=== PATIENT | male | born 1975 | race Caucasian/White ===

== ENCOUNTER 2017-04-27 00:16 | Emergency (ER) | payer SELFPAY ==
[2017-04-27] MEDS ORDERED: TRIAMCINOLONE ACETONIDE INJ 40 MG/1 ML VIAL INJ ONE (02:36)
[2017-04-27] MEDS ORDERED: BUPIVACAINE HCL 0.75% INJ/PF (7.5 MG/1 ML) 10 ML SDV INJ ONE (02:36)
--- NOTE | 2017-04-27 02:51 | RADIOLOGY REPORT (SQ) ---
EXAM DESCRIPTION: ELBOW RIGHT OVER 2 VIEWS COMPLETED DATE/TIME: 04/27/2017 2:35 am REASON FOR STUDY: pain s/p injury COMPARISON: None. NUMBER OF VIEWS: Four views. TECHNIQUE: AP, lateral, and both oblique radiographic images acquired of the right elbow. LIMITATIONS: None. FINDINGS: MINERALIZATION: Normal. BONES: No acute fracture or dislocation. No worrisome bone lesions. JOINT: No effusion. SOFT TISSUES: No soft tissue swelling. No foreign body. OTHER: No other significant finding. IMPRESSION: NEGATIVE STUDY OF THE RIGHT ELBOW. NO RADIOGRAPHIC EVIDENCE OF ACUTE INJURY. TECHNICAL DOCUMENTATION: JOB ID: [id number] [employer]- All Rights Reserved
--- NOTE | 2017-04-27 02:53 | ER Document Report ---
HPI - HPI Pain Level: 4 Notes: Patient is a 41-year-old male who presents the ED complaining of right elbow pain 2-3 months. Patient states that he was seen in [place] 3 weeks ago and had a negative x-ray. Patient has been taking Tylenol and naproxen with minimal relief. Patient states that he has pain with wrist extension and supination. Patient is not aware of any significant injury aside from falling on that elbow 3-5 months ago. Patient states that he is right-handed and he uses that arm often. The pain does not radiate and is described as soreness. Patient denies any drug allergies although ibuprofen is listed (GI upset). Patient denies any other significant past medical history. Denies any headache , fever, chest pain, palpitations, syncope, cough, shortness of breath, wheeze, dyspnea, abdominal pain, nausea/vomiting/diarrhea, numbness/tingling, muscle paralysis/weakness, or rash. - ROS Notes: REVIEW OF SYSTEMS: CONSTITUTIONAL : Denies fever, chills, or sweats. Denies recent illness. EENT: Denies eye, ear, throat, or mouth pain or symptoms. Denies nasal or sinus congestion or discharge. Denies throat, tongue, or mouth swelling or difficulty swallowing. CARDIOVASCULAR: Denies chest pain. Denies palpitations or racing or irregular heart beat. Denies ankle edema. RESPIRATORY: Denies cough, cold, or chest congestion. Denies shortness of breath, difficulty breathing, or wheezing. GASTROINTESTINAL: Denies abdominal pain or distention. Denies nausea, vomiting , or diarrhea. Denies blood in vomitus, stools, or per rectum. Denies black, tarry stools. Denies constipation. GENITOURINARY: Denies difficulty urinating, painful urination, burning, frequency, blood in urine, or discharge. MUSCULOSKELETAL: see hpi SKIN: Denies rash, lesions or sores. NEUROLOGICAL: Denies confusion or altered mental status. Denies passing out or loss of consciousness. Denies dizziness or lightheadedness. Denies headache. Denies weakness or paralysis or loss of use of either side. Denies problems with gait or speech. Denies sensory loss, numbness, or tingling. ALL OTHER SYSTEMS REVIEWED AND NEGATIVE. Dictation was performed using [employer] recognition software - [employer] Skin Color: Normal, Pass Christian Past Medical History - Social History Smoking Status: Current Every Day Smoker Family History: Reviewed & Not Pertinent Renal/ Medical History: Denies: Hx Peritoneal Dialysis Vertical Provider Document - CONSTITUTIONAL Agree With Documented VS: Yes Notes: PHYSICAL EXAMINATION: GENERAL: Well-appearing, well-nourished and in no acute distress. LUNGS: Breath sounds clear to auscultation bilaterally and equal. No wheezes rales or rhonchi. HEART: Regular rate and rhythm without murmurs, rubs, gallops. Musculoskeletal: Rt elbow: FROM to passive/active. Strength 5+/5. + tenderness to tendons of rt epicondyle. No swelling, abrasion, ecchymosis, or laceration noted. No bony tenderness. + tenderness with resisted wrist supination/ extension. Extremities: No cyanosis, clubbing, or edema b/l. Peripheral pulses 2+. Capillary refill less than 3 seconds. NEUROLOGICAL: Normal speech, normal gait. Normal sensory, motor exams PSYCH: Normal mood, normal affect. SKIN: Warm, Dry, normal turgor, no rashes or lesions noted. - INFECTION CONTROL TRAVEL OUTSIDE OF THE [place] IN LAST 30 DAYS: No - RESPIRATORY O2 Sat by Pulse Oximetry: 96 Course - Re-evaluation Re-evalutation: 04/27/17 03:08 Patient is an afebrile, well-hydrated, 41-year-old male who presents the ED with right lateral epicondylitis based on H&P today. Vitals stable. PE otherwise unremarkable. X-ray unremarkable for any acute fracture or dislocation. Reviewed treatment plans with patient. Patient would like to go ahead with a Kenalog/Sensorcaine injection. 40 mg of Kenalog along with 1.5 cc of Sensorcaine was injected into the lateral condyle successfully without any complications or blood loss. Patient noted improvement in his symptoms. I will send him home with a prescription for Voltaren gel. Conservative measures otherwise for symptoms. Consider consult with physical therapy/ortho. Recheck/ establish with a PCM this week. Return to the ED with any worsening/concerning symptoms otherwise as reviewed discharge. Patient is in agreement. - Vital Signs Vital signs: Temp Pulse Resp BP Pulse Ox 98.4 F 114 H 16 142/102 H 96 04/27/17 00:57 04/27/17 00:57 04/27/17 00:57 04/27/17 00:57 04/27/17 00:57 Procedures - Additional Procedures trigger point inj Time performed: 03:00 Additional Procedures: Other - epicondylitis steroid/lido injection. Notes: 04/27/17 03:05 Verbal and written consent obtained after procedure/risk/benefits reviewed Skin was cleansed utilizing iodine and alcohol swabs Kenalog 40 mg along with 1.5 cc Sensorcaine 0.75% was used to successfully inject the tendons of the lateral epicondyle of the right elbow Band-Aid placed thereafter for hemostasis Patient tolerated procedure well No complications No blood loss Discharge - Discharge Clinical Impression: Right lateral epicondylitis Condition: Stable Disposition: HOME, SELF-CARE Instructions: Joint Steroid Injection ([facility]), Tennis Elbow (Lateral Epicondylitis) ([facility]) Additional Instructions: Rest, Ice, Compression, Elevation Use medication as directed Tylenol as needed Light stretches daily Strength exercises as able Moist heat and massage may help F/u-establish with PCM this week for a recheck Consider consult(s) with Orthopedics/physical therapy for ongoing/worsening symptoms Return to the ED with any worsening symptoms and/or development of fever, headache, chest pain, palpitations, syncope, shortness of breath, trouble breathing, abdominal pain, muscle weakness/paralysis, saddle anesthesia, numbness/tingling, abscess, purulent discharge, red streaks, or other worsening symptoms that are concerning to you. Prescriptions: Diclofenac Sodium [Voltaren] 4 gm TP QID PRN #100 gel..gm. PRN Reason: Forms: Elevated Blood Pressure, Smoking Cessation Education Referrals: [facility] [Provider Group] - Follow up as needed
[2017-04-27 04:49] VITALS: BP 114/83
== END 2017-04-27 03:15 | disposition home or self-care (01) ==
LOC: ER 00:16
PROC: 3E0233Z Introduction of Anti-inflammatory into Muscle, Percutaneous Approach (ICD-10-PCS; principal; 2017-04-27)
PROC: 3E023BZ Introduction of Anesthetic Agent into Muscle, Percutaneous Approach (ICD-10-PCS; 2017-04-27)
DX: M77.11 Lateral epicondylitis, right elbow (principal); F17.200 Nicotine dependence, unspecified, uncomplicated
CPT/HCPCS: 99283

== ENCOUNTER 2017-06-21 01:28 | Emergency (ER) | payer SELFPAY ==
--- NOTE | 2017-06-21 02:23 | ER Document Report ---
HPI - HPI Pain Level: 4 Context: Patient is a 41-year-old male presents emergency department complaining of left hand pain. Patient states that he had a crush injury at work under piece of metal and since then has had intermittent numbness and tingling in his fingers. Otherwise normal motor function and sensation. No open wounds. - DERM Skin Color: Normal Past Medical History - Social History Smoking Status: Smoker,Current Status Unk Family History: Reviewed & Not Pertinent Patient has suicidal ideation: No Patient has homicidal ideation: No Renal/ Medical History: Denies: Hx Peritoneal Dialysis Vertical Provider Document - CONSTITUTIONAL Notes: PHYSICAL EXAM GENERAL: Alert, interacts well. EXTREMITIES: Equal manager ethics strength sensation normal. moves all 4 extremities spontaneously. No edema, radial and dorsalis pedis pulses 2/4 bilaterally. No cyanosis. NEUROLOGICAL: Alert and oriented x4. Normal speech.sensation normal in b/l UE's. PSYCH: Normal affect, normal mood. SKIN: Warm, dry, normal turgor. No rashes or lesions noted. - INFECTION CONTROL TRAVEL OUTSIDE OF THE [place] IN LAST 30 DAYS: No - RESPIRATORY O2 Sat by Pulse Oximetry: 98 Course - Re-evaluation Re-evalutation: 06/21/17 03:41 Patient is a 41-year-old male who is hemodynamically stable, no acute distress afebrile. No evidence of a septic joint, gout flare, dislocation, or fracture on exam and imaging. Vitals wnl. At this time, I do not see an indication for labs or further imaging. Will discharge with conservative measures, return precautions, and follow-up recommendations. - Vital Signs Vital signs: Temp Pulse Resp BP Pulse Ox 98.3 F 120 H 98 H 140/108 H 98 06/21/17 01:35 06/21/17 01:35 06/21/17 01:35 06/21/17 01:35 06/21/17 01:35 - Diagnostic Test Radiology reviewed: Image reviewed, Reports reviewed Discharge - Discharge Clinical Impression: Hand pain Condition: Good Disposition: HOME, SELF-CARE Instructions: Contusion ([facility]), Nerve Contusion ([facility]) Referrals: ANNALISE TEIXEIRA DO [ACTIVE STAFF] - 07/06/17
--- NOTE | 2017-06-21 03:18 | RADIOLOGY REPORT (SQ) ---
EXAM DESCRIPTION: HAND LEFT 3 VIEWS COMPLETED DATE/TIME: 06/21/2017 3:10 am REASON FOR STUDY: pain, crush injury 2 days ago COMPARISON: None. EXAM PARAMETERS: NUMBER OF VIEWS: Three views. TECHNIQUE: AP, lateral and oblique radiographic images acquired of the left hand. LIMITATIONS: None. FINDINGS: MINERALIZATION: Normal. BONES: No acute fracture or dislocation. No worrisome bone lesions. JOINTS: No effusions. SOFT TISSUES: No soft tissue swelling. No foreign body. OTHER: No other significant finding. IMPRESSION: NEGATIVE STUDY OF THE LEFT HAND. NO RADIOGRAPHIC EVIDENCE OF ACUTE INJURY. TECHNICAL DOCUMENTATION: JOB ID: [id number] [employer]- All Rights Reserved
[2017-06-21] MEDS ORDERED: NAPROXEN 250 MG TABLET PO ONE (03:42)
[2017-06-21 03:49] VITALS: BP 119/81
== END 2017-06-21 03:51 | disposition home or self-care (01) ==
LOC: ER 01:28
DX: M79.642 Pain in left hand (principal); X58.XXXA Exposure to other specified factors, initial encounter; F17.200 Nicotine dependence, unspecified, uncomplicated
CPT/HCPCS: 99283

== ENCOUNTER 2017-10-21 20:33 | Observation (INO) | payer SELFPAY ==
[2017-10-21] MEDS ORDERED: ASPIRIN 81 MG TABLET, CHEWABLE PO ONE (21:51)
--- NOTE | 2017-10-21 21:53 | ER Document Report ---
ED Medical Screen (RME) - General Chief Complaint: Chest Pain Stated Complaint: CHEST PAINS/RASH Time Seen by Provider: 10/21/17 21:45 Notes: Patient is a 41-year-old male presents emergency room with a chief complaint of rash but states that as he was driving a. Sudden onset of bilateral chest tightness without radiation into his jaw upper extremities or back that his slowly dwindled since his arrival. He denies any specific focal pain, shortness of breath, cough, dyspnea. Denies any recent URI symptoms. Denies any alleviating factors. Patient denies any previous history of chest pain. Denies any medical problems. Denies any recent travel. Also admits to rash covering his extremities for the past 3 weeks. TRAVEL OUTSIDE OF THE [place] IN LAST 30 DAYS: No - Related Data Allergies/Adverse Reactions: ibuprofen Adverse Reaction (Verified 04/27/17 01:03) Past Medical History Renal/ Medical History: Denies: Hx Peritoneal Dialysis Physical Exam - Vital signs Vitals: Temp Pulse Resp BP Pulse Ox 98.1 F 106 H 16 110/78 97 10/21/17 21:04 10/21/17 21:04 10/21/17 21:04 10/21/17 21:04 10/21/17 21:04 - Notes Notes: PHYSICAL EXAM GENERAL: Alert, interacts well. HEAD: Normocephalic, atraumatic. LUNGS: Clear to auscultation bilaterally, no wheezes, rales, or rhonchi. No respiratory distress. HEART: Regular rate and rhythm. No murmurs, gallops, or rubs. EXTREMITIES: Moves all 4 extremities spontaneously. No edema, radial and dorsalis pedis pulses 2/4 bilaterally. No cyanosis. NEUROLOGICAL: Alert and oriented x4. Normal speech. PSYCH: Normal affect, normal mood. SKIN: Warm, dry, normal turgor. Lesions noted all over her forearms that are exposed that show evidence of abrasions likely related to picking without any focal cellulitis, purulent drainage Course - Vital Signs Vital signs: Temp Pulse Resp BP Pulse Ox 98.1 F 106 H 16 110/78 97 10/21/17 21:04 10/21/17 21:04 10/21/17 21:04 10/21/17 21:04 10/21/17 21:04
[2017-10-21 22:11] LABS: ABSOLUTE EOSINOPHILS # (AUTO) 0.1 10^3/uL (0.0-0.6); ABSOLUTE LYMPHOCYTES (AUTO) 2.1 10^3/uL (0.5-4.7); ABSOLUTE NEUT (AUTO) 6.5 10^3/uL (1.7-8.2); BASOPHILS % (AUTO) 0.5 % (0-2); EOSINOPHILS % (AUTO) 1.5 % (0-6); HEMATOCRIT 44.3 % (37.9-51.0); HEMOGLOBIN 15.3 g/dL (13.5-17.0); MEAN CORPUSCULAR HEMOGLOBIN 31.2 pg (27.0-33.4); MEAN CORPUSCULAR HGB CONC 34.4 g/dL (32.0-36.0); MEAN CORPUSCULAR VOLUME 91 fl (80-97); MONOCYTES % (AUTO) 10.4 % (3-13); PLATELET COUNT 251 10^3/uL (150-450); RED BLOOD COUNT 4.89 10^6/uL (4.35-5.55); RED CELL DISTRIBUTION WIDTH 13.5 % (11.5-14.0); SEGMENTED NEUTROPHILS % (AUTO) 66.6 % (42-78); TOTAL CELLS COUNTED % (AUTO) 100 %; WHITE BLOOD COUNT 9.8 10^3/uL (4.0-10.5)
--- NOTE | 2017-10-21 22:17 | ER Document Report ---
ED General - General Chief Complaint: Chest Pain Stated Complaint: CHEST PAINS/RASH Time Seen by Provider: 10/21/17 21:45 Mode of Arrival: Ambulatory Information source: Patient Notes: 41-year-old male presents with 2 separate complaints, patient's initial complaint was multiple small abscesses throughout his body, patient was coming to be seen for this and then on route he began having sudden chest tightness pressure sensation lasting approximately 1 hour associated with shortness of breath difficulty breathing and diaphoresis. Patient denies any previous similar episodes patient denies any medical history except for consistent sinus tachycardia patient denies any cardiac workup TRAVEL OUTSIDE OF THE [place] IN LAST 30 DAYS: No - HPI Onset: Just prior to arrival Onset/Duration: Sudden Quality of pain: Pressure Severity: Mild Pain Level: 1 Associated symptoms: Chest pain, Shortness of breath, Sweating Exacerbated by: Denies Relieved by: Denies Similar symptoms previously: No Recently seen / treated by doctor: No Past Medical History - Social History Smoking Status: Never Smoker Cigarette use (# per day): No Chew tobacco use (# tins/day): Yes Smoking Education Provided: No Family History: CAD - Father had quadruple bypass Renal/ Medical History: Denies: Hx Peritoneal Dialysis Review of Systems - Review of Systems Notes: REVIEW OF SYSTEMS: CONSTITUTIONAL : Admits to diaphoresis EENT: Denies eye, ear, throat, or mouth pain or symptoms. Denies nasal or sinus congestion or discharge. Denies throat, tongue, or mouth swelling or difficulty swallowing. CARDIOVASCULAR admits to chest pain RESPIRATORY: Admits shortness of breath GASTROINTESTINAL: Denies abdominal pain or distention. Denies nausea, vomiting , or diarrhea. Denies blood in vomitus, stools, or per rectum. Denies black, tarry stools. Denies constipation. GENITOURINARY: Denies difficulty urinating, painful urination, burning, frequency, blood in urine, or discharge. MUSCULOSKELETAL: Denies back or neck pain or stiffness. Denies joint pain or swelling. SKIN: Admits to rash HEMATOLOGIC : Denies easy bruising or bleeding. LYMPHATIC: Denies swollen, enlarged glands. NEUROLOGICAL: Denies confusion or altered mental status. Denies passing out or loss of consciousness. Denies dizziness or lightheadedness. Denies headache. Denies weakness or paralysis or loss of use of either side. Denies problems with gait or speech. Denies sensory loss, numbness, or tingling. Denies seizures. PSYCHIATRIC: Denies anxiety or stress. Denies depression, suicidal ideation, or homicidal ideation. ALL OTHER SYSTEMS REVIEWED AND NEGATIVE. Dictation was performed using [employer] voice recognition software PHYSICAL EXAMINATION: GENERAL: Well-appearing, well-nourished and in no acute distress. HEAD: Atraumatic, normocephalic. EYES: Pupils equal round and reactive to light, extraocular movements intact, sclera anicteric, conjunctiva are normal. ENT: Nares patent, oropharynx clear without exudates. Moist mucous membranes. NECK: Normal range of motion, supple without lymphadenopathy LUNGS: Breath sounds clear to auscultation bilaterally and equal. No wheezes rales or rhonchi. HEART: Regular rate and rhythm without murmurs ABDOMEN: Soft, nontender, nondistended abdomen. No guarding, no rebound. No masses appreciated. Musculoskeletal: Normal range of motion, no pitting or edema. No cyanosis. NEUROLOGICAL: Cranial nerves grossly intact. Normal speech, normal gait. Normal sensory, motor exams PSYCH: Normal mood, normal affect. SKIN: Multiple small scabs all throughout the body consistent with abscesses Physical Exam - Vital signs Vitals: Temp Pulse Resp BP Pulse Ox 98.1 F 106 H 16 110/78 97 10/21/17 21:04 10/21/17 21:04 10/21/17 21:04 10/21/17 21:04 10/21/17 21:04 Course - Re-evaluation Re-evalutation: 10/21/17 23:49 Patient's workup is benign, he notes he has not not had any chest pain since the initial presentation he will be admitted to the hospitalist service for ACS rule out - Vital Signs Vital signs: Temp Pulse Resp BP Pulse Ox 97.9 F 106 H 25 H 118/82 97 10/21/17 23:08 10/21/17 21:04 10/21/17 23:01 10/21/17 23:01 10/21/17 23:01 - Laboratory Result Diagrams: 10/21/17 21:55 10/21/17 21:55 Laboratory results interpreted by me: 10/21/17 21:55 Glucose 117 H Creatine Kinase 43 L Discharge - Discharge Clinical Impression: Rash and nonspecific skin eruption Chest pain Qualifiers: Chest pain type: unspecified Qualified Code(s): R07.9 - Chest pain, unspecified Condition: Stable Disposition: ADMITTED OBSERVATION Admitting Provider: Hospitalist Unit Admitted: Telemetry
[2017-10-21 22:27] LABS: ALANINE AMINOTRANSFERASE 34 U/L (21-72); ALBUMIN 4.2 g/dL (3.5-5.0); ALKALINE PHOSPHATASE 51 U/L (38-126); ANION GAP 13 (5-19); ASPARTATE AMINO TRANSFERASE 19 U/L (17-59); BILIRUBIN,DIRECT 0.1 mg/dL (0.0-0.4); BILIRUBIN,TOTAL 0.3 mg/dL (0.2-1.3); BLOOD UREA NITROGEN 7 mg/dL (7-20); CALCIUM 9.5 mg/dL (8.4-10.2); CARBON DIOXIDE 23 mmol/L (22-30); CHLORIDE 105 mmol/L (98-107); CREATINE KINASE 43 U/L (55-170); GLUCOSE 117 mg/dL (75-110); POTASSIUM 3.9 mmol/L (3.6-5.0); SODIUM 140.5 mmol/L (137-145)
[2017-10-21 22:40] LABS: TROPONIN I < 0.012 ng/mL
--- NOTE | 2017-10-21 23:22 | RADIOLOGY REPORT (SQ) ---
EXAM DESCRIPTION: CHEST SINGLE VIEW CLINICAL HISTORY: 41 years, Male, chest pain COMPARISON: None. FINDINGS: Normal lung volume, clear parenchyma, normal cardiac silhouette, and intact bony thorax. IMPRESSION: No acute cardiopulmonary findings.
[2017-10-22] MEDS ORDERED: MAG HYDROX/AL HYDROX/SIMETH SUSP 30 ML UDCUP PO PRN (02:12)
[2017-10-22] MEDS ORDERED: DOXYCYCLINE HYCLATE 100 MG TABLET PO ONE (03:00)
[2017-10-22 04:30] LABS: CREATINE KINASE 42 U/L (55-170); TRIGLYCERIDES 303 mg/dL (<150)
--- NOTE | 2017-10-22 04:39 | PDOC H&P ---
History of Present Illness Admission Date/PCP: 10/22/17 00:23 Patient complains of: Chest pain History of Present Illness: PRICILLA MONDRAGON is a 41 year old male with past medical history of GERD and folliculitis. Presents following a 1 hour episode of severe retrosternal chest pain associated with shortness of breath nausea and diaphoresis prompting evaluation emergency room. It is dull, 5 out of 5 intensity and nonradiating he denies previous episode. He is unable to identify alleviating or exacerbating factors pain resolves spontaneously without intervention. In the emergency room his workup was unremarkable he is referred to the hospitalist for evaluation. He denies recent change in medications and otherwise feels well. Additionally patient complains of recent recurrent severe acid reflux awakening him from sleep. Also a chronic diffuse follicular rash without pustules. Past Medical History Medical History: None Skin Medical History: Reports: Other - Folliculitis Past Surgical History Past Surgical History: Reports: None Social History Information Source: Patient Lives with: Family Smoking Status: Never Smoker Frequency of Alcohol Use: None Hx Recreational Drug Use: No Drugs: None - Advance Directive Resuscitation Status: Full Code Family History Family History: CAD - Father had quadruple bypass Parental Family History Reviewed: Yes Children Family History Reviewed: Yes Sibling(s) Family History Reviewed.: Yes Medication/Allergy Home Medications: No Home Medications 10/22/17 Allergies/Adverse Reactions: No Known Allergies Allergy (Unverified 10/22/17 00:07) Review of Systems Constitutional: ABSENT: chills, fever(s), headache(s), weight gain, weight loss Eyes: ABSENT: visual disturbances Ears: ABSENT: hearing changes Cardiovascular: ABSENT: chest pain, dyspnea on exertion, edema, orthropnea, palpitations Respiratory: ABSENT: cough, hemoptysis Gastrointestinal: PRESENT: heartburn - Severe uncontrolled GERD. ABSENT: abdominal pain, constipation, diarrhea, hematemesis, hematochezia, nausea, vomiting Genitourinary: ABSENT: dysuria, hematuria Musculoskeletal: ABSENT: joint swelling Integumentary: ABSENT: rash, wounds Neurological: ABSENT: abnormal gait, abnormal speech, confusion, dizziness, focal weakness, syncope Psychiatric: ABSENT: anxiety, depression, homidical ideation, suicidal ideation Endocrine: ABSENT: cold intolerance, heat intolerance, polydipsia, polyuria Hematologic/Lymphatic: ABSENT: easy bleeding, easy bruising Physical Exam Vital Signs: Temp Pulse Resp BP Pulse Ox 97.9 F 106 H 9 L 109/67 95 10/21/17 23:08 10/21/17 21:04 10/22/17 03:01 10/22/17 03:01 10/22/17 03:01 General appearance: PRESENT: no acute distress, well-developed, well-nourished Head exam: PRESENT: atraumatic, normocephalic Eye exam: PRESENT: conjunctiva pink, EOMI, PERRLA. ABSENT: scleral icterus Ear exam: PRESENT: normal external ear exam Mouth exam: PRESENT: moist, tongue midline Neck exam: ABSENT: carotid bruit, JVD, lymphadenopathy, thyromegaly Respiratory exam: PRESENT: clear to auscultation ryan. ABSENT: rales, rhonchi, wheezes Cardiovascular exam: PRESENT: RRR. ABSENT: diastolic murmur, rubs, systolic murmur Pulses: PRESENT: normal dorsalis pedis pul Vascular exam: PRESENT: normal capillary refill GI/Abdominal exam: PRESENT: normal bowel sounds, soft. ABSENT: distended, guarding, mass, organolmegaly, rebound, tenderness Rectal exam: PRESENT: deferred Extremities exam: PRESENT: full ROM. ABSENT: calf tenderness, clubbing, pedal edema Neurological exam: PRESENT: alert, awake, oriented to person, oriented to place , oriented to time, oriented to situation, CN II-XII grossly intact. ABSENT: motor sensory deficit Psychiatric exam: PRESENT: appropriate affect, normal mood. ABSENT: homicidal ideation, suicidal ideation Skin exam: PRESENT: dry, intact, warm, other - Diffuse for folliculitis of the extremities and chest. ABSENT: cyanosis, rash Results Impressions: Chest X-Ray 10/21/17 21:51 IMPRESSION: No acute cardiopulmonary findings. Assessment & Plan - Diagnosis (1) Chest pain Qualifiers: Chest pain type: unspecified Qualified Code(s): R07.9 - Chest pain, unspecified Is this a current diagnosis for this admission?: Yes Plan: Atypical chest pain though the patient's pain is atypical there are multiple risk factors for coronary artery disease and subsequently will observe and evaluation of acute coronary syndrome versus coronary artery disease with anginal equivalents. Cardiac monitoring blood pressure Q6 hours ,TSH, lipid profile, serial cardiac enzymes and cardiac stress test (2) GERD (gastroesophageal reflux disease) Is this a current diagnosis for this admission?: Yes Plan: #1 likely secondary to esophageal spasm. Education for avoidance of caffeine and lying down after eating. (3) Rash and nonspecific skin eruption Is this a current diagnosis for this admission?: Yes Plan: Patient is a regular Kody will trial doxycycline 10 days. - Time Time Spent: 50 to 70 Minutes - Inpatient Certification Medical Necessity: Need Close Monitoring Due to Risk of Patient Decompensation
[2017-10-22 04:41] LABS: DIRECT LDL 100 mg/dL (<100)
[2017-10-22 04:42] LABS: CREATINE KINASE MB 0.51 ng/mL (<4.55)
[2017-10-22 05:07] LABS: TROPONIN I < 0.012 ng/mL; VLDL CHOLESTEROL 60.6 mg/dL (10-31)
[2017-10-22] MEDS: LANSOPRAZOLE 30 MG TAB.RAP.DR PO SCH ×2 (05:25→18:09)
--- NOTE | 2017-10-22 08:50 | EKG REPORT ---
SEVERITY:- OTHERWISE NORMAL ECG - SINUS TACHYCARDIA : Confirmed by: Isabelle Brice 22-Oct-2017 08:49:41
[2017-10-22 11:15] LABS: CREATINE KINASE MB 0.58 ng/mL (<4.55)
--- NOTE | 2017-10-22 11:18 | DRAGON STRESS TEST REPORT ---
EXERCISE TREADMILL TEST. DATE OF PROCEDURE: October 22, 2017 INDICATION: Patient with unspecified chest pain. Coronary risk factors: Family history of CAD Resting EKG: Sinus rhythm, no baseline ST segment changes. Stress EKG: No significant changes noted with with exercise treadmill. Reason for termination: Dyspnea and fatigue. PROCEDURE REPORT: Baseline heart rate: 95 beats per minute with blood pressure of 133/81. Patient had no significant complaints at baseline. Patient was exercised on a standard Carlos protocol. Patient exercised for total of 6 minutes and 11 seconds. Exercise was stopped because of fatigue and shortness of breath, patient also had chest pain at peak exercise, which resolved within a minute of recovery. If automatic blood pressure recorded and if felt not accurate manual blood pressure then were recorded at appropriate intervals. Peak heart rate: 153 bpm, 85 of predicted maximum. Peak blood pressure: 159/77 mmHg. Double product: 23.5 kcal Exercise EKG: Showed some baseline artifact during exercise but no significant ST segment changes noted. CONCLUSIONS: Normal EKG and satisfactory hemodynamic response to exercise. However patient had positive chest pain at peak exercise and in early recovery, CAD not completely ruled out. Below average exercise tolerance. Negative EKG changes with exercise. RECOMMENDATIONS: Since patient developed chest pain at peak exercise, this could be indicative of underlying CAD and further testing is indicated which may include a nuclear stress test, cardiac CTA, a stress echo etc. posterior wall ischemia can be missed by plain stress EKG. Aggressive risk factor modification, medical therapy. Consider cardiology consultation if clinically indicated. Isabelle Brice M.D., [employer] production specialist, Board certified in cardiovascular diseases, Nuclear cardiology, Echocardiography Cardiac CT and cardiac MRI Ph. [phone] Ph. [phone] [facility]
[2017-10-22 11:19] LABS: TROPONIN I < 0.012 ng/mL
[2017-10-22] MEDS ORDERED: INFLUENZA ADLT QUAD (36MOS+) 2017-18 VAC 0.5 ML SYR IM PRN (16:35)
[2017-10-22 17:39] LABS: CREATINE KINASE MB 0.56 ng/mL (<4.55)
[2017-10-22 17:41] LABS: TROPONIN I < 0.012 ng/mL
[2017-10-22] MEDS: DOXYCYCLINE HYCLATE 100 MG TABLET PO SCH (18:08)
[2017-10-22 18:10] LABS: CHOLESTEROL 157.71 mg/dL (0-200); TRIGLYCERIDES 256 mg/dL (<150); VLDL CHOLESTEROL 51.2 mg/dL (10-31)
[2017-10-22 18:21] LABS: DIRECT LDL 98 mg/dL (<100)
--- NOTE | 2017-10-22 20:18 | PDOC CONSULTATION ---
Consultation Consult Date: 10/22/17 Attending physician:: FRANCOIS SMITH Consult reason:: Chest pain History of Present Illness Admission Date/PCP: 10/22/17 00:23 Patient complains of: Chest pain History of Present Illness: PRICILLA MONDRAGON is a 41 year old male with past medical history of GERD and folliculitis. Presents following a 1 hour episode of severe retrosternal chest pain associated with shortness of breath nausea and diaphoresis prompting evaluation emergency room. It is dull, 5 out of 5 intensity and nonradiating he denies previous episode. He is unable to identify alleviating or exacerbating factors pain resolves spontaneously without intervention. In the emergency room his workup was unremarkable he is referred to the hospitalist for evaluation. He denies recent change in medications and otherwise feels well. Additionally patient complains of recent recurrent severe acid reflux awakening him from sleep. Also a chronic diffuse follicular rash without pustules. This history was reviewed and confirmed. Patient had a stress test today during which he was noted to have chest pain but no significant EKG changes. Past Medical History Skin Medical History: Reports: Other - Folliculitis Psychiatric Medical History: Denies: Depression Past Surgical History Past Surgical History: Reports: None Social History Information Source: Patient Lives with: Family Smoking Status: Never Smoker Frequency of Alcohol Use: None Hx Recreational Drug Use: No Drugs: None Hx Prescription Drug Abuse: No - Advance Directive Resuscitation Status: Full Code Family History Family History: CAD - Father had quadruple bypass Parental Family History Reviewed: Yes Children Family History Reviewed: Yes Sibling(s) Family History Reviewed.: Yes Medication/Allergy Home Medications: No Home Medications 10/22/17 Allergies/Adverse Reactions: No Known Allergies Allergy (Unverified 10/22/17 00:07) Review of Systems Review of Systems: Please see history of present illness and past medical history as wall. Constitutional: No fever or chills reported. Head : No recent chronic headaches, recent head injury. Eyes: No recent eye pain, diplopia, redness, discharge, acute visual changes. Ears: No recent chronic ear pain, acute hearing loss, ear discharge. Oral cavity: No recent ulcerations, bleeding, oral cavity discomfort. Neck: No recent acute neck pain reported. Hematologic: No recent easy bruising or bleeding or hematologic malignancy reported. Lymphatic: No recent lymphatic malignancy, chronic lymphadenopathy reported yet Cardiovascular system review: See history of present illness. Respiratory system review: No recent chronic cough, hemoptysis, blood clots in the lungs reported. Mild Shortness of breath on exertion Gastrointestinal system review: Negative for any recent acute or chronic abdominal pain, hematemesis, melena, recent change in bowel habits. Genitourinary system review: No recent acute or chronic hematuria, flank pain, UTI etc. reported. Skin system review: Negative for any recent abnormal bruising, no rash, no pruritus reported. Neurologic: No prior history of strokes, mini strokes, seizure disorder. Psychologic: No history of major psychosis or major depression reported. Musculoskeletal: Minor aches and pains reported. No acute joint swelling reported. Endocrine: No recent polyuria, polydipsia, recent heat or cold intolerance. Physical Exam Vital Signs: Temp Pulse Resp BP Pulse Ox 97.8 F 96 16 142/86 H 100 10/22/17 15:55 10/22/17 15:55 10/22/17 15:55 10/22/17 15:55 10/22/17 15:55 Intake & Output 10/21/17 10/22/17 10/23/17 06:59 06:59 06:59 Intake Total 720 Balance 720 Weight 110 kg 106.594 kg Exam: GENERAL: well-nourished and in no acute distress. Alert and oriented x3 HEAD: Atraumatic, normocephalic. EYES: Pupils equal round and reactive to light, extraocular movements intact, sclera anicteric, conjunctiva are normal. ENT: TMs normal, nares patent, oropharynx clear without exudates. Moist mucous membranes. No oral ulcerations or bleeding gums noted NECK: supple without lymphadenopathy. Trachea is central. No cervical or axillary lymphadenopathy noted. Carotids are 2+, JVD WNL LUNGS: Respiration seems nonlabored, no significant accessory muscle action noted. Breath sounds clear to auscultation bilaterally and equal noted. No wheezes rales or rhonchi noted. No significant dullness noted on percussion. CHEST: Palpation of the chest wall shows no significant chest wall tenderness. No other significant abnormalities noted. 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 ABDOMEN: Soft, no significant tenderness appreciated, normoactive bowel sounds. No guarding, no rebound. No rigidity noted . No masses appreciated. EXTREMITIES: Pedal pulses are 1-2+, no calf tenderness noted. No clubbing or cyanosis.trace to 1+ pedal edema noted NEUROLOGICAL: Focused neurological exam showed no significant neurologic deficit. Normal speech, no focal weakness appreciated. PSYCH: Normal mood, normal affect. Judgment and insight within normal limits. SKIN: No significant ecchymosis, rash, ulcerations or signs of pruritus noted. MUSCULOSKELETAL EXAM: No significant joint swelling noted. Results Laboratory Results: 10/22/17 10/22/17 04:00 16:48 Triglycerides 303 H 256 H Cholesterol 159.50 157.71 LDL Cholesterol Direct 100 98 VLDL Cholesterol 60.6 H 51.2 H HDL Cholesterol 41 41 10/22/17 10/22/17 10/22/17 04:00 04:00 10:25 Creatine Kinase 42 L CK-MB (CK-2) 0.51 0.58 Troponin I < 0.012 < 0.012 10/22/17 16:48 Creatine Kinase CK-MB (CK-2) 0.56 Troponin I < 0.012 EKG Comments: Twelve-lead EKG shows sinus rhythm without any sustained tacky or bradycardia arrhythmias. Impressions: Chest X-Ray 10/21/17 21:51 IMPRESSION: No acute cardiopulmonary findings. Assessment & Plan - Diagnosis (1) Chest pain Qualifiers: Chest pain type: unspecified Qualified Code(s): R07.9 - Chest pain, unspecified Is this a current diagnosis for this admission?: Yes (2) GERD (gastroesophageal reflux disease) Is this a current diagnosis for this admission?: Yes (3) Rash and nonspecific skin eruption Is this a current diagnosis for this admission?: Yes (4) Obesity Qualifiers: Obesity type: unspecified obesity type Obesity classification: unspecified obesity classification Is this a current diagnosis for this admission?: Yes - Notes Notes: Patient scheduled for a 2D echo and a nuclear stress test. A better test would have been coronary CTA but that is not available in this institution. Chest pain: Patient has some typical and atypical features of chest pain. Cardiac enzymes so far has been negative. Electrocardiogram did not show any definitive ST segment changes. Multiple differential diagnoses exist in this patient. In descending order of probability this includes underlying coronary artery disease, gastroesophageal reflux, musculoskeletal pain, referred pain from elsewhere, anxiety panic disorder etc.Patient has significant cardiac risk factors, which indicates that there is a intermediate probability of chest discomfort coming from underlying CAD. Feel that it would need to be evaluated further. Discussed evaluation to assess this. In this regard risk benefits of nuclear stress test and other alternative processes were discussed in detail. The patient prefers to undergo nuclear stress test. The small risk of radiation , myocardial infarction, , cardiac arrhythmias, respiratory distress etc. were discussed. Patient understood the risks and gave informed consent. Nuclear stress test was therefore scheduled. For risk evaluation, patient is also being scheduled for a 2-D echocardiogram. Patient questions were answered. Patient did have a plain stress test during which she was noted to have chest pain. Cannot rule out posterior wall ischemia. Therefore feel that a nuclear stress test or another stress test with imaging modality should be scheduled. Also for risk stratification will obtain a 2D echocardiogram. Recommend obtaining lipid panel if this has not been obtained. Gastroesophageal reflux patient seems to have this condition. Weigh loss tends to help this condition. Recommend small meals, avoid eating within 3 hours of bedtime, avoid other food substances which had led to reflux in the past. Proton pump inhibitors and other antacids are recommended. Obesity: Patient has been advised to lose weight. Skin rash: We will leave management to the hospitalist/underwriting clerk - Time Time Spent: 30 to 50 Minutes - CODE STATUS was discussed, patient remains full code. Surrogate decision-maker unchanged. Multiple medical problems were addressed. More than 50% of the time spent coordinating care, discussing management plans with involved caregivers. Management plans discussed with involved personnels. Medical decision making was of moderate to high complexity , patient's has multiple comorbidities. Medications reviewed and adjusted accordingly: Yes
[2017-10-23] MEDS: LANSOPRAZOLE 30 MG TAB.RAP.DR PO SCH (05:45)
[2017-10-23] MEDS: DOXYCYCLINE HYCLATE 100 MG TABLET PO SCH (05:45)
--- NOTE | 2017-10-23 10:59 | EKG REPORT ---
SEVERITY:- NORMAL ECG - SINUS RHYTHM : Confirmed by: Isabelle Brice 23-Oct-2017 10:58:35
--- NOTE | 2017-10-23 12:02 | DRAGON STRESS TEST REPORT ---
INTRAVENOUS LEXISCAN CARDIOLITE STRESS TEST USING SINGLE PHOTON EMMISION COMPUTERIZED TOMOGRAPHIC. DATE OF PROCEDURE: October 23, 2017, INDICATION : Chest pain CARDIAC RISK FACTORS: Family history of CAD RESTING EKG: Sinus rhythm without any baseline ST-T wave changes STRESS EKG: No significant changes noted with LexiScan bolus REASON FOR TERMINATION: Protocol. PROCEDURE REPORT: Baseline heart rate 81 beats per minute with blood pressure of 116/91. Patient had no significant complaints. Heart rate at 2 minutes post bolus 123 with a blood pressure of 156/93. 3 minutes post bolus heart rate 105 with blood pressure of 145/71. No significant EKG changes were noted. Patient had no significant complaints during the procedure or postprocedure. Patient injected with Aminophyllin 75 mg at 3 minutes or later after Lexiscan bolus. CONCLUSIONS: Normal EKG and hemodynamic response to IV LexiScan. NUCLEAR DATA: At rest the patient was given 14.27 millicuries of technetium 99 sestamibi injected intravenously. As per protocol rest gated SPECT images were obtained. On day of stress test, the patient was given intravenous LexiScan at a dose of 0.4 mg in 5 mL intravenously, followed by flush with normal saline. Subsequently the stress dose of 45.5 millicuries of technetium 99 sestamibi was injected intravenously. As per protocol stress gated images were obtained. NUCLEAR INTERPRETATION: Both raw and processed data were used for interpretation. Visual, qualitative, computer-generated quantitative data was used. There was good myocardial uptake of technetium compound. Motion artifact and soft tissue attenuations were noted. Increased visceral uptake was noted. No definitive areas of transient perfusion defect noted, No definitive areas of fixed perfusion defect or scars noted. EKG gated imaging showed LV EF at 61 %, rest and stress gated EF similar visually. T. I D. ratio was 1.01. Lung heart ratio noted to be within normal limits 0.32. No significant extracardiac and abnormal radiotracer activities were noted. RV free wall uptake was noted to be WNL. IMPRESSION: Also refer to comments under nuclear interpretation. Also test results needs to be interpreted in the context of pretest probability. 1. No definitive areas of transient perfusion defect noted. 2. There is no definitive scintigraphic evidence of myocardial infarction/scar. 3. EKG gated imaging shows left ventricular ejection fraction of approx. 61 %. RECOMMENDATIONS: Aggressive risk factor modification and medical management. Further evaluation may be needed if continued symptoms or other high risk indicators are noted on clinical evaluation. May consider evaluation for alternative noncardiac causes of chest pain in this patient if clinically indicated and if patient continues to have chest pain MTDD
--- NOTE | 2017-10-23 12:11 | PDOC PROGRESS REPORT ---
Subjective Progress Note for:: 10/23/17 Subjective:: Patient seems to be doing better. No recurrences of chest pain. Pt is denying any chest arm or neck discomfort. Patient denying any PND, orthopnea. Patient denied any sustained palpitations, dizziness, syncope, near syncope. Patient denying any fever chills. Patient denying any other significant discomfort. Patient is maintaining sinus rhythm. Review of systems: Rest review of systems negative. Medications: Medications have been reviewed. Reason For Visit: CHEST PAIN Physical Exam Vital Signs: Temp Pulse Resp BP Pulse Ox 98.4 F 79 18 110/71 97 10/23/17 03:16 10/23/17 07:00 10/23/17 03:16 10/23/17 03:16 10/23/17 03:16 Intake & Output 10/22/17 10/23/17 10/24/17 06:59 06:59 06:59 Intake Total 1520 Balance 1520 Weight 110 kg 109.6 kg Exam: GENERAL: well-nourished and in no acute distress. Alert and oriented x3 HEAD: Atraumatic, normocephalic. EYES: Pupils equal round and reactive to light, extraocular movements intact, sclera anicteric, conjunctiva are normal. ENT: TMs normal, nares patent, oropharynx clear without exudates. Moist mucous membranes. No oral ulcerations or bleeding gums noted NECK: supple without lymphadenopathy. Trachea is central. No cervical or axillary lymphadenopathy noted. Carotids are 2+, JVD WNL LUNGS: Respiration seems nonlabored, no significant accessory muscle action noted. Breath sounds clear to auscultation bilaterally and equal noted. No wheezes rales or rhonchi noted. No significant dullness noted on percussion. CHEST: Palpation of the chest wall shows no significant chest wall tenderness. No other significant abnormalities noted. 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 ABDOMEN: Soft, no significant tenderness appreciated, normoactive bowel sounds. No guarding, no rebound. No rigidity noted . No masses appreciated. EXTREMITIES: Pedal pulses are 2+, no calf tenderness noted. No clubbing or cyanosis. Negative pedal edema noted NEUROLOGICAL: Focused neurological exam showed no significant neurologic deficit. Normal speech, no focal weakness appreciated. PSYCH: Normal mood, normal affect. Judgment and insight within normal limits. SKIN: No significant ecchymosis, rash, ulcerations or signs of pruritus noted. MUSCULOSKELETAL EXAM: No significant joint swelling noted. Results Laboratory Results: 10/22/17 16:48 Triglycerides 256 H Cholesterol 157.71 LDL Cholesterol Direct 98 VLDL Cholesterol 51.2 H HDL Cholesterol 41 10/22/17 10/22/17 10/22/17 04:00 04:00 10:25 Creatine Kinase 42 L CK-MB (CK-2) 0.51 0.58 Troponin I < 0.012 < 0.012 10/22/17 16:48 Creatine Kinase CK-MB (CK-2) 0.56 Troponin I < 0.012 EKG Comments: Twelve-lead EKG is WNL Impressions: Chest X-Ray 10/21/17 21:51 IMPRESSION: No acute cardiopulmonary findings. Assessment & Plan - Diagnosis (1) Chest pain Qualifiers: Chest pain type: unspecified Qualified Code(s): R07.9 - Chest pain, unspecified Is this a current diagnosis for this admission?: Yes (2) GERD (gastroesophageal reflux disease) Is this a current diagnosis for this admission?: Yes (3) Rash and nonspecific skin eruption Is this a current diagnosis for this admission?: Yes (4) Obesity Qualifiers: Obesity type: unspecified obesity type Obesity classification: unspecified obesity classification Is this a current diagnosis for this admission?: Yes - Notes Notes: Chest pain: Patient claims chest pain is resolved. This was evaluated with a nuclear stress test. Nuclear stress test was negative for any significant areas of ischemia or any significant areas of scar. The nuclear stress test is felt to be relatively low risk. Patient informed that occasionally single- vessel disease and balanced ischemia could be missed. Patient advised aggressive risk factor modification and medical therapy. Patient informed that further evaluation may become necessary if symptoms worsens or there is a development of new symptoms indicative of angina or angina equivalent symptom. May consider evaluation for noncardiac chest pain if clinically indicated. 2D echo shows normal LVEF. No significant valvular abnormalities noted. Gastroesophageal reflux disease: Improved on proton pump inhibitor therapy Patient would benefit from weight loss, healthy lifestyle, sleep hygiene etc. - Time Time with patient: Greater than 35 minutes - Patient was seen multiple times. Total time exceeds 40 minutes. In the morning nuclear stress test procedure, risks benefits, alternatives were discussed. Patient seen during the stress test. Patient also seen after stress test when results were discussed with the patient in detail. Patient's questions were answered. Nuclear stress test results were discussed with the patient. Patient was informed that no definitive evidence of pharmacologic stress-induced ischemia noted. No definite fixed defects were noted. Patient informed that occasionally significant single vessel disease or balanced ischemia could be missed. However based on the current study results, would recommend aggressive risk factor modification and medical therapy. It may also be worthwhile to consider evaluation or empiric management of other causes of chest pain. Should no other cause be found and if persistent in having chest pain, then cardiac catheterization should be considered. Right now, recommendations are for aggressive risk factor modification and medical management. Aggressive risk factor modification and medical management discussed. Patient also advised to follow-up with his primary care physician and me. Patient advised that he might benefit from a sleep apnea evaluation. Patient does give history of underlying sleep apnea syndrome in the past. Discussed increased cardiovascular event risk with untreated sleep apnea. Medications reviewed and adjusted accordingly: Yes
[2017-10-23 13:17] VITALS: BP 138/92
--- NOTE | 2017-10-23 14:32 | PDOC DISCHARGE SUMMARY ---
General - Admit/Disc Date/PCP Admission Date/Primary Care Provider: 10/22/17 00:23 Discharge Date: 10/23/17 - Discharge Diagnosis (1) Chest pain Is this a current diagnosis for this admission?: Yes (2) GERD (gastroesophageal reflux disease) Is this a current diagnosis for this admission?: Yes (3) Obesity Is this a current diagnosis for this admission?: Yes (4) Rash and nonspecific skin eruption Is this a current diagnosis for this admission?: Yes - Additional Information Resuscitation Status: Full Code Discharge Activity: Activity As Tolerated, Balance Activity w/Rest Prescriptions: Doxycycline Hyclate [Vibramycin 100 mg Tablet] 100 mg PO BID #14 tablet Lansoprazole [Prevacid 30 mg Odt Tablet] 30 mg PO BID@0600,1700 #30 tab. Home Medications: Doxycycline Hyclate [Vibramycin 100 mg Tablet] 100 mg PO BID #14 tablet Lansoprazole [Prevacid 30 mg Odt Tablet] 30 mg PO BID@0600,1700 #30 tab 10/23/17 History of Present Illness History of Present Illness: PRICILLA MONDRAGON is a 41 year old male with history of presence of reflux disease, uses Zantac, complaints of skin eruptions on and off for about 2 months. He decided to come to the ED and develop chest pain on the way. He also admits that his reflux symptoms have been flaring up recently. In the ED, evaluation was significant for normal troponin and impressive EKG. He was admitted to medical service and ruled out for TN with serial troponin 3. He had stress test done that was negative, but he had chest pain during the test. He was evaluated by Dr. Brice of cardiology echo and nuclear stress test. These were negative. Of note is that patient's symptoms improved with treatment with PPI. For patient's skin complaint, exam revealed a diffuse folliculitis of the extremities and chest. He was started on doxycycline 100 mg twice a day and is tolerating. He is advised to follow-up with PCP and have a referral to a possible mechanical handyman if no improvement or if continued problems. Patient being discharged home in stable condition. Will treat with 7 additional days of doxycycline and is given prescription for Protonix 30 mg daily for 30 days with 2 refills. Again he is to follow-up with his primary care physician within 1 week. Also consider referral back to cardiology and/or tester waste disposal leakage if continued symptoms. Physical Exam Vital Signs: Temp Pulse Resp BP Pulse Ox 98.2 F 88 18 138/92 H 99 10/23/17 13:23 10/23/17 13:23 10/23/17 13:23 10/23/17 13:23 10/23/17 13:23 Intake & Output 10/22/17 10/23/17 10/24/17 06:59 06:59 06:59 Intake Total 1520 Balance 1520 Weight 110 kg 109.6 kg GEN: NAD, well-developed, well-nourished CV: RRR, NL S1S2 LUNGS: CTA bilaterally ABDOMEN Soft, NT, +BS EXTERMITIES: No e/c/c NEURO: Alert, oriented Skin: Diffuse for folliculitis of the extremities and chest. Results Laboratory Results: 10/22/17 16:48 Triglycerides 256 H Cholesterol 157.71 LDL Cholesterol Direct 98 VLDL Cholesterol 51.2 H HDL Cholesterol 41 10/22/17 10/22/17 10/22/17 04:00 04:00 10:25 Creatine Kinase 42 L CK-MB (CK-2) 0.51 0.58 Troponin I < 0.012 < 0.012 10/22/17 16:48 Creatine Kinase CK-MB (CK-2) 0.56 Troponin I < 0.012 Impressions: Chest X-Ray 10/21/17 21:51 IMPRESSION: No acute cardiopulmonary findings.
[2017-10-23] MEDS ORDERED: AMINOPHYLLINE INJ/PF 250 MG/10 ML SDV IV ONE (16:57)
[2017-10-23] MEDS ORDERED: REGADENOSON INJ 0.4 MG/5 ML DISP.SYRIN IV ONE (16:57)
--- NOTE | 2017-10-23 18:57 | XCELERA REPORT ---
[address] [address] Transthoracic Echocardiogram Report Name: PRICILLA MONDRAGON Age: 41 yrs Gender: Male : 1975 Patient Status: Inpatient Patient Location: [address] [place] [address] Study Date: 10/23/2017 08:17 AM Height: 70 in Weight: 235 lb BSA: 2.2 m2 Procedure: A complete two-dimensional transthoracic echocardiogram was performed (2D, M-mode, spectral and color flow Doppler). The study was technically adequate with some images being suboptimal in quality. Reason For Study: CP Ordering Physician: ISABELLE DIXON Performed By: Renée Brar Interpretation Summary The left ventricular ejection fraction is normal. There is mild concentric left ventricular hypertrophy. The left ventricle is grossly normal size. Wall motion cannot be accurately commented on, but no definite regional wall motion abnormalities noted. Doppler measurements suggest impaired left ventricular relaxation, which is associated with grade I/IV or mild diastolic dysfunction The right ventricular systolic function is normal. The right atrium is normal in size The left atrium is borderline dilated. There is no mitral valve stenosis. There is a trace amount of mitral regurgitation No aortic regurgitation is present. There is no aortic valve stenosis There is a trace or physiologic amount of tricuspid regurgitation Tricuspid regurgitation jet envelope not well defined to measure RV systolic pressure accurately. The aortic root is not well visualized but is probably normal size. The inferior vena cava appeared normal and decreased > 50% with respiration (RAP 5-10 mmHg) There is no pericardial effusion. MMode/2D Measurements & Calculations RVDd: 3.5 cm LVIDd: 4.4 cm FS: 32.4 % Ao root diam: 3.3 cm IVSd: 1.1 cm LVIDs: 3.0 cm EDV(Teich): 89.6 ml LVPWd: 1.1 cm ESV(Teich): 35.0 ml Ao root area: 8.5 cm2 EF(Teich): 60.9 % LA dimension: 3.6 cm Doppler Measurements & Calculations MV E max nazario: MV P1/2t max nazario: Ao V2 max: LV V1 max P.1 cm/sec 70.1 cm/sec 117.0 cm/sec 4.8 mmHg MV A max nazario: MV P1/2t: 46.7 msec Ao max PG: LV V1 max: 70.6 cm/sec 5.5 mmHg 109.6 cm/sec MV E/A: 1.0 MVA(P1/2t): 4.7 cm2 MV dec slope: 439.7 cm/sec2 MV dec time: 0.20 sec PA V2 max: 73.5 cm/sec PA max P.2 mmHg Left Ventricle The left ventricle is grossly normal size. There is mild concentric left ventricular hypertrophy. The left ventricular ejection fraction is normal. Doppler measurements suggest impaired left ventricular relaxation, which is associated with grade I/IV or mild diastolic dysfunction. Wall motion cannot be accurately commented on, but no definite regional wall motion abnormalities noted. Right Ventricle The right ventricle is grossly normal size. There is normal right ventricular wall thickness. The right ventricular systolic function is normal. Atria The right atrium is normal in size. The left atrium is borderline dilated. Interarterial septum not well visualized and not well dopplered. Cannot comment on ASD/PFO presence. Mitral Valve The mitral valve is grossly normal. There is no mitral valve stenosis. There is a trace amount of mitral regurgitation. Aortic Valve The aortic valve is grossly normal. There is no aortic valve stenosis. No aortic regurgitation is present. Tricuspid Valve The tricuspid valve is not well visualized secondary to technical limitations. There is no tricuspid stenosis. There is a trace or physiologic amount of tricuspid regurgitation. Tricuspid regurgitation jet envelope not well defined to measure RV systolic pressure accurately. Pulmonic Valve The pulmonic valve is not well visualized. Great Vessels The aortic root is not well visualized but is probably normal size. The inferior vena cava appeared normal and decreased > 50% with respiration (RAP 5-10 mmHg). Effusions There is no pericardial effusion. : ISABELLE DIXON > Isabelle Dixon
== END 2017-10-23 14:56 | disposition home or self-care (01) ==
LOC: ER 20:33 → EH 10-22 00:23 → 5 10-22 13:57
PROVIDERS: ADMIT Internal Medicine; ATTEND Internal Medicine
DX: R07.89 Other chest pain (principal); K21.9 Gastro-esophageal reflux disease without esophagitis; E66.9 Obesity, unspecified; R21 Rash and other nonspecific skin eruption; L73.8 Other specified follicular disorders; R06.02 Shortness of breath; R61 Generalized hyperhidrosis; Z68.34 Body mass index [BMI] 34.0-34.9, adult; Z79.899 Other long term (current) drug therapy; Z82.49 Family history of ischemic heart disease and other diseases of the circulatory system
CPT/HCPCS: 93005 ×2; 99285; 36415 ×2; 82553 ×2; 82550 ×2; 84443; 85025; 80053; 84484 ×2; 85379; 80061; 93306; 93017 ×2; 71045; 78452; 93010 ×2; G0378 ×3; A9500; J2785; J3490 ×2; J0280; Q9969